=== PATIENT | male | born 1985 ===

== ENCOUNTER 2017-09-13 20:40 | Emergency (ER) | payer BC ==
[2017-09-13 20:54] VITALS: TEMP 97.5; O2SAT 100
[2017-09-13 21:44] LABS: BASO % 0.5 % (0.0-2.0); EOS # 0.2 K/uL (0.0-0.7); EOS % 2.7 % (0.0-4.0); HEMOGLOBIN 16.3 g/dL (12.0-18.0); LYMPH # 3.9 K/uL (1.0-4.3); LYMPH % 47.8 % (20.0-40.0); MEAN CELL VOLUME 82.4 fL (80.0-94.0); MEAN CORPUSCULAR HEMOGLOBIN 28.6 pg (27.0-31.0); MEAN CORPUSCULAR HGB CONC 34.7 g/dL (33.0-37.0); MEAN PLATELET VOLUME 8.5 fL (7.2-11.7); MONO # 0.7 K/uL (0.0-0.8); MONO % 8.2 % (0.0-10.0); NEUT # 3.3 K/uL (1.8-7.0); NEUT % 40.8 % (50.0-75.0); NRBC % 0.1 % (0.0-2.0); RBC 5.7 Mil/uL (4.40-5.90); RED CELL DISTRIBUTION WIDTH 14.1 % (11.5-14.5); WHITE BLOOD COUNT 8.2 K/uL (4.8-10.8)
--- NOTE | 2017-09-13 21:45 | C.PDOC ---
History Of Present Illness 32-year-old male, brought in by ambulance to the emergency department complaining of transient left chest discomfort, that resolved prior to evaluation. Patient took Motrin 400mg; he was evaluated for same complaint at [facility] two weeks ago, with normal labs, cardiac echo and questionable pericarditis. patient followed up with Dr Mcclelland, rat exterminator, told patient he does not have any signs or symptoms of this. Patient has been googling aggressively, which has him convinced that he has percarditis due to persisting symptoms. Pain is not positional, and does not change in severity by moving forward or back. Time Seen by Provider: 09/13/17 21:06 Chief Complaint (Nursing): Chest Pain History Per: Patient History/Exam Limitations: no limitations Onset/Duration Of Symptoms: Days Current Symptoms Are (Timing): Better Past Medical History Reviewed: Historical Data, Nursing Documentation, Vital Signs Vital Signs: Last Vital Signs Temp 97.5 F L 09/13/17 20:42 Pulse 59 L 09/13/17 22:32 Resp 18 09/13/17 22:32 BP 104/67 09/13/17 22:32 Pulse Ox 100 09/13/17 23:06 Family History: States: No Known Family Hx - Social History Hx Alcohol Use: No Hx Substance Use: No - Immunization History Hx Tetanus Toxoid Vaccination: No Hx Influenza Vaccination: No Hx Pneumococcal Vaccination: No Review Of Systems Constitutional: Negative for: Fever, Chills Cardiovascular: Positive for: Chest Pain (left). Negative for: Palpitations Respiratory: Negative for: Shortness of Breath, Pleuritic Pain Gastrointestinal: Negative for: Nausea, Vomiting Musculoskeletal: Negative for: Back Pain Skin: Negative for: Rash Neurological: Negative for: Weakness, Numbness, Headache, Dizziness Physical Exam - Physical Exam Appears: Other (Anxious) Skin: Warm, Dry, No Rash Head: Atraumatic, Normacephalic Eye(s): bilateral: Normal Inspection, PERRL Nose: Normal Oral Mucosa: Moist Neck: Normal ROM Cardiovascular: Rhythm Regular, No Edema, Murmur (mild, holosystolic in aortic focus. ), No JVD, Other (No rubs) Respiratory: Normal Breath Sounds, No Accessory Muscle Use Extremity: Normal ROM Neurological/Psych: Oriented x3, Normal Speech ED Course And Treatment - Laboratory Results Result Diagrams: 09/13/17 21:27 09/13/17 21:27 Lab Interpretation: Normal (d-dimer neg, trop neg, ESR 2) ECG: Interpreted By Me ECG Rhythm: Sinus Tachycardia ECG Interpretation: Abnormal Rate From EC O2 Sat by Pulse Oximetry: 100 (RA) Pulse Ox Interpretation: Normal - Radiology CXR: Interpreted by Me CXR Interpretation: Yes: No Acute Disease Progress Note: xanax 0.25 mg PO Reevaluation Time: 23:00 Reassessment Condition: Improved Medical Decision Making Medical Decision Making: pt with NO evidence, nor signs nor symtoms of pericarditis. normal labs, no rub, ESR neg, trop neg, d-dimer neg. More likely pt w h/o morbid obesity, h/o gastric sleeve w reflux dz on PPI now encouraged by 2 prior evals in past 2 weeks to take high dose NSAIDS around the clock for "presumed pericarditis" despite no supporting evidence, now worstening gastris/GERD. explained to STOP all NSAIDS and double PPI/Pepcid and liberal Maalox for symptoms. Disposition Doctor Will See Patient In The: Office Counseled Patient/Family Regarding: Studies Performed, Diagnosis - Disposition Referrals: Tushar Delacruz MD [Medical Doctor] - Disposition: HOME/ ROUTINE Disposition Time: 23:04 Condition: GOOD Additional Instructions: pt with NO evidence, nor signs nor symtoms of pericarditis. normal labs, no rub, ESR neg, trop neg, d-dimer neg. More likely pt w h/o morbid obesity, h/o gastric sleeve w reflux dz on PPI now encouraged by 2 prior evals in past 2 weeks to take high dose NSAIDS around the clock for "presumed pericarditis" despite no supporting evidence, now worstening gastris/GERD. STOP all NSAIDS Double PPI/Pepcid to 20 mg 9AM and 9PM [place] Maalox for symptoms- one tablespoon 4-5x/day for next 3 days, then as symptoms occur. Outpatient follow-up with PMD as needed. Instructions: Chest Pain (ED), Gastroesophageal Reflux Disease (ED) Forms: [employer] (Ghanaian) - Clinical Impression Clinical Impression: Chest discomfort - Scribe Statement The provider has reviewed the documentation as recorded by the Scribe (Marc Cochran) All medical record entries made by the Scribe were at my direction and personally dictated by me. I have reviewed the chart and agree that the record accurately reflects my personal performance of the history, physical exam, medical decision making, and the department course for this patient. I have also personally directed, reviewed, and agree with the discharge instructions and disposition.
[2017-09-13 21:46] LABS: ALB/GLOB RATIO 1.1 (1.0-2.1); ALBUMIN 4.9 g/dL (3.5-5.0); ALT/SGPT 45 U/L (21-72); AST/SGOT 27 U/L (17-59); BLOOD UREA NITROGEN 17 mg/dL (9-20); CALCIUM 9.7 mg/dl (8.6-10.4); GFR AFRICAN-AMERICAN > 60; GFR NON-AFRICAN AMERICAN > 60
[2017-09-13 21:54] LABS: INR 1.3; PARTIAL THROMBOPLASTIN TIME 33 SECONDS (21-34); PROTHROMBIN TIME 14.3 SECONDS (9.7-12.2)
[2017-09-13 21:56] LABS: D DIMER < 200.0 ng/mlDDU (0-243)
[2017-09-13 22:10] LABS: B-TYPE NATRIURETIC PEPTIDE 13.3 pg/mL (0-450)
[2017-09-13 22:38] VITALS: BP 104/67; PULSE 59; RESP 18
--- NOTE | 2017-09-14 09:09 | RAD ---
Chest x-ray single frontal view History: Shortness of no breath. Comparison: 09/13/2017 Findings: No focal infiltrate or effusion. Right hilar prominence. Heart size within normal limits. Degenerative changes in the spine. Impression: No focal infiltrate or effusion.
--- NOTE | 2017-09-14 12:14 | CARD ---
APPROVED REPORT EKG Measurement Heart [id number] <Conclusion> Sinus tachycardia Otherwise normal ECG
== END 2017-09-13 23:29 | disposition home or self-care (01) ==
LOC: C.ER 20:40 → MERGE 20:40 → C.ER 23:29
DX: R07.89 Other chest pain (principal)

== ENCOUNTER 2017-09-20 21:09 | Emergency (ER) | payer BC ==
--- NOTE | 2017-09-20 23:35 | C.PDOC ---
Chief Complaint (Nursing): Chest Pain Past Medical History Vital Signs: Last Vital Signs Temp 97.4 F L 09/20/17 22:50 Pulse 72 09/20/17 22:50 Resp 18 09/20/17 22:50 BP 124/88 09/20/17 22:50 Pulse Ox 99 09/20/17 22:50 - Social History Hx Alcohol Use: No Hx Substance Use: No - Immunization History Hx Tetanus Toxoid Vaccination: No Hx Influenza Vaccination: No Hx Pneumococcal Vaccination: No ED Course And Treatment ECG: Interpreted By Me, Viewed By Me ECG Rhythm: Sinus Rhythm ECG Interpretation: Normal, No Acute Changes Interpretation Of ECG: NSR, J - pt. elevation-early repolarization, borderline tracings Rate From EC O2 Sat by Pulse Oximetry: 99 Pulse Ox Interpretation: Normal Disposition - Disposition Referrals: Tushar Delacruz MD [Primary Care Provider] -
--- NOTE | 2017-09-20 23:38 | C.PDOC ---
History Of Present Illness 32yo male, presents to ED for evaluation of an episode of chest pain earlier today, lasting for 20 minutes. Patient currently pain free and denies any chest pain, shortness of breath. Of note, patient was seen in this facility 1 week ago for similar symptoms and had a well exam. Chief Complaint (Nursing): Chest Pain History Per: Patient History/Exam Limitations: no limitations Onset/Duration Of Symptoms: Other (1 episode earlier today) Current Symptoms Are (Timing): Gone Quality: "Pain" Additional History Per: Patient Past Medical History Reviewed: Historical Data, Nursing Documentation, Vital Signs Vital Signs: Last Vital Signs Temp 97.4 F L 09/20/17 22:50 Pulse 72 09/20/17 22:50 Resp 18 09/20/17 22:50 BP 124/88 09/20/17 22:50 Pulse Ox 99 09/21/17 01:44 - Medical History PMH: No Chronic Diseases Surgical History: No Surg Hx Family History: States: No Known Family Hx - Social History Hx Alcohol Use: No Hx Substance Use: No - Immunization History Hx Tetanus Toxoid Vaccination: No Hx Influenza Vaccination: No Hx Pneumococcal Vaccination: No Review Of Systems Except As Marked, All Systems Reviewed And Found Negative. Constitutional: Negative for: Fever, Chills Cardiovascular: Positive for: Chest Pain (1 episode earlier today) Respiratory: Negative for: Shortness of Breath Gastrointestinal: Negative for: Nausea, Vomiting, Abdominal Pain Physical Exam - Physical Exam Appears: Non-toxic, No Acute Distress Skin: Normal Color, Warm, Dry Head: Atraumatic, Normacephalic Eye(s): bilateral: Normal Inspection Neck: Normal ROM, Supple Chest: Symmetrical Cardiovascular: Rhythm Regular, No Murmur Respiratory: Normal Breath Sounds, No Wheezing Gastrointestinal/Abdominal: Normal Exam, Bowel Sounds, Soft, No Tenderness Back: Normal Inspection Extremity: Normal ROM Neurological/Psych: Oriented x3, Normal Speech, Normal Cognition ED Course And Treatment - Laboratory Results Result Diagrams: 09/21/17 00:10 09/21/17 00:10 ECG: Interpreted By Me, Viewed By Me ECG Rhythm: Sinus Rhythm ECG Interpretation: Normal, No Acute Changes Interpretation Of ECG: NSR, J- pt. elevation-early repolarization, borderline tracings Rate From EC O2 Sat by Pulse Oximetry: 99 (RA) Pulse Ox Interpretation: Normal - Radiology CXR: Interpreted by Me, Viewed By Me CXR Interpretation: Yes: No Acute Disease (normal chest film) Medical Decision Making Medical Decision Making: Impression: Chest pain Plan: -- CXR -- EKG -- Labs Time: 0142 Labs reviewed and cardiac enzymes within normal limits. Patient is pain free. Stable for discharge home. Disposition - Disposition Referrals: Tushar Delacruz MD [Primary Care Provider] - Disposition: HOME/ ROUTINE Disposition Time: 01:42 Condition: STABLE Instructions: Noncardiac Chest Pain (ED) Forms: [employer] (Andorran) - POA Present On Arrival: None - Clinical Impression Clinical Impression: Chest pain, non-cardiac - Scribe Statement The provider has reviewed the documentation as recorded by the Scribe (Tran Leary) Provider Attestation: All medical record entries made by the Scribe were at my direction and personally dictated by me. I have reviewed the chart and agree that the record accurately reflects my personal performance of the history, physical exam, medical decision making, and the department course for this patient. I have also personally directed, reviewed, and agree with the discharge instructions and disposition.
[2017-09-21 00:21] LABS: BASO # 0.1 K/uL (0.0-0.2); BASO % 0.9 % (0.0-2.0); EOS # 0.2 K/uL (0.0-0.7); HEMOGLOBIN 15.6 g/dL (12.0-18.0); LYMPH % 43.1 % (20.0-40.0); MEAN CELL VOLUME 82.4 fL (80.0-94.0); MEAN CORPUSCULAR HEMOGLOBIN 28.3 pg (27.0-31.0); MEAN CORPUSCULAR HGB CONC 34.4 g/dL (33.0-37.0); MEAN PLATELET VOLUME 8.5 fL (7.2-11.7); MONO # 0.6 K/uL (0.0-0.8); MONO % 8.2 % (0.0-10.0); NEUT # 3.1 K/uL (1.8-7.0); NEUT % 44.8 % (50.0-75.0); NRBC % 0.1 % (0.0-2.0); RBC 5.51 Mil/uL (4.40-5.90); RED CELL DISTRIBUTION WIDTH 13.8 % (11.5-14.5)
[2017-09-21 00:51] LABS: ALB/GLOB RATIO 1.1 (1.0-2.1); ALBUMIN 4.5 g/dL (3.5-5.0); ALT/SGPT 47 U/L (21-72); AST/SGOT 32 U/L (17-59); BLOOD UREA NITROGEN 14 mg/dL (9-20); CALCIUM 9.5 mg/dl (8.6-10.4); GFR AFRICAN-AMERICAN > 60; GFR NON-AFRICAN AMERICAN > 60
[2017-09-21 01:55] VITALS: BP 124/86; PULSE 73; RESP 22; TEMP 97.6; O2SAT 100
--- NOTE | 2017-09-21 09:05 | RAD ---
HISTORY: chest pain COMPARISON: 09/13/2017 TECHNIQUE: Chest PA and lateral FINDINGS: LUNGS: No active pulmonary disease. PLEURA: No significant pleural effusion identified. No pneumothorax apparent. CARDIOVASCULAR: Normal. OSSEOUS STRUCTURES: No significant abnormalities. VISUALIZED UPPER ABDOMEN: Normal. OTHER FINDINGS: None. IMPRESSION: No active disease.
--- NOTE | 2017-09-21 21:02 | CARD ---
APPROVED REPORT EKG Measurement Heart [id number] <Conclusion> Normal sinus rhythm ST elevation, probably due to early repolarization Borderline ECG
== END 2017-09-21 01:59 | disposition home or self-care (01) ==
LOC: SUPCPDRO 21:09 → C.ER 21:09
DX: R07.89 Other chest pain (principal)

== ENCOUNTER 2017-10-17 16:47 | Emergency (ER) | payer BC ==
[2017-10-17 16:52] VITALS: BMI 31.5
[2017-10-17 17:06] VITALS: O2SAT 98
[2017-10-17] MEDS ORDERED: Sodium Chloride 0.9% 1,000 ML IV ONE (17:17)
--- NOTE | 2017-10-17 17:31 | C.PDOC ---
History Of Present Illness Floridalma Delacruz is a 32 year old male, with a past medical history of gastric sleeve , who presents to the emergency department complaining of fever, body aches, headache onset for x1 day. Patient was seen at urgent care today and was prescribed Tamiflu. Patient states he went home and began having mid chest pain that worsens with deep inspiration. He is on day 5 of Augmentin for an inflamed lymph node, but no history of DVT/PE. No recent travel or surgery, no known hypercoagulable state. He denies any shortness of breath or other medical complaints. PMD: None provided. HPI: Influenza Time Seen by Provider: 10/17/17 16:57 Chief Complaint: Cough, Cold, Congestion Chief Complaint (Provider): Mid chest pain and Flu sx History Per: Patient Exam Limitations: no limitations Have you had recent travel within the past 21 days to any of the following countries: [place], [place], [place] or [place]?: No Onset/Duration Of Symptoms: Days (x1) Symptoms include: fever, headache, bodyaches, chest pain (mid). denies: difficulty breathing Past Medical History Reviewed: Historical Data, Nursing Documentation, Vital Signs Vital Signs: Last Vital Signs Temp 101.1 F H 10/17/17 17:06 Pulse 121 H 10/17/17 17:06 Resp 18 10/17/17 17:06 BP 121/87 10/17/17 17:06 Pulse Ox 98 10/17/17 17:06 - Medical History PMH: No Chronic Diseases Other Surgeries: gastric sleeve Family History: States: Unknown Family Hx - Social History Hx Alcohol Use: No Hx Substance Use: No - Immunization History Hx Tetanus Toxoid Vaccination: No Hx Influenza Vaccination: No Hx Pneumococcal Vaccination: No Review Of Systems Except As Marked, All Systems Reviewed And Found Negative. Constitutional: Positive for: Fever, Other (body aches) Cardiovascular: Positive for: Chest Pain (mid) Respiratory: Negative for: Shortness of Breath Neurological: Positive for: Headache Physical Exam - Physical Exam Appears: No Acute Distress Skin: Normal Color, Warm, Dry Head: Atraumatic, Normacephalic Eye(s): bilateral: Normal Inspection, PERRL, EOMI Ear(s): Bilateral: Normal Nose: Normal Oral Mucosa: Moist Throat: Normal Neck: Normal ROM, Supple Cardiovascular: Rhythm Regular, No Murmur Respiratory: Normal Breath Sounds (clear auscultation), No Wheezing Gastrointestinal/Abdominal: Normal Exam, Soft, No Tenderness, No Guarding, No Rebound Back: Normal Inspection, No CVA Tenderness Extremity: Normal ROM, No Tenderness, No Deformity, No Swelling Neurological/Psych: Oriented x3, Other (Negative brudzinski's and Kernig's sign. ) Gait: Steady Medical Decision Making Medical Decision Making: Initial Impression: Flu-like symptoms Initial Plan: --EKG --CMP --Troponin I --CBC w/ differential --D Dimer --Chest two views (PA/LAT) [RAD] --Influenza type A Antigen --Sodium Chloride 1,000 ml IV 1,000 mls/hr --Toradol 30 mg IVP --Tylenol 325mg tab 975 mg PO --Influenza A B --Reevaluation 17:29 CXR FINDINGS: Examination limited by habitus. LUNGS: No focal consolidation. Please note that chest x-ray has limited sensitivity for the detection of pulmonary masses. PLEURA: No significant pleural effusion identified. No definite pneumothorax . CARDIOVASCULAR: The cardiomediastinal silhouette appears within normal limits of size. OSSEOUS STRUCTURES: No acute osseous abnormality identified. VISUALIZED UPPER ABDOMEN: Unremarkable. OTHER FINDINGS: None. IMPRESSION: No focal consolidation, significant pleural effusion, or definite pneumothorax identified. - Laboratory Results Result Diagrams: 10/17/17 17:32 10/17/17 17:32 - ECG ECG Rhythm: Positive for: Sinus Tachycardia Interpretation Of ECG: Normal intervals, normal axis, no ST/T wave abnormalities. Rate: 109 O2 Sat by Pulse Oximetry: 98 (RA) Pulse Ox Interpretation: Normal Disposition - Disposition Disposition Time: 19:00 Condition: STABLE Forms: [facility] (Portuguese) - Clinical Impression Clinical Impression: Influenza-like illness - Scribe Statement The provider has reviewed the documentation as recorded by the Victoria Monahan Provider Attestation: All medical record entries made by the Alexanderibaníbal were at my direction and personally dictated by me. I have reviewed the chart and agree that the record accurately reflects my personal performance of the history, physical exam, medical decision making, and the department course for this patient. I have also personally directed, reviewed, and agree with the discharge instructions and disposition. Physician Patient Turnover Patient Signed Over To: Son Gary Handoff Comments: pending repeat troponin, reevaluation and disposition.
[2017-10-17 17:34] LABS: BASO % 0.6 % (0.0-2.0); EOS % 0.2 % (0.0-4.0); HEMOGLOBIN 16.3 g/dL (12.0-18.0); LYMPH % 19.1 % (20.0-40.0); MEAN CELL VOLUME 82.4 fL (80.0-94.0); MEAN CORPUSCULAR HEMOGLOBIN 28.9 pg (27.0-31.0); MEAN CORPUSCULAR HGB CONC 35.1 g/dL (33.0-37.0); MEAN PLATELET VOLUME 7.9 fL (7.2-11.7); MONO # 0.6 K/uL (0.0-0.8); MONO % 11.6 % (0.0-10.0); NEUT # 3.6 K/uL (1.8-7.0); NEUT % 68.5 % (50.0-75.0); NRBC % 0.1 % (0.0-2.0); RBC 5.63 Mil/uL (4.40-5.90); RED CELL DISTRIBUTION WIDTH 14.2 % (11.5-14.5); WHITE BLOOD COUNT 5.3 K/uL (4.8-10.8)
[2017-10-17 17:57] LABS: ALB/GLOB RATIO 1.2 (1.0-2.1); ALBUMIN 4.4 g/dL (3.5-5.0); ALT/SGPT 53 U/L (21-72); AST/SGOT 39 U/L (17-59); BLOOD UREA NITROGEN 11 mg/dL (9-20); CALCIUM 9.4 mg/dl (8.6-10.4); GFR AFRICAN-AMERICAN > 60; GFR NON-AFRICAN AMERICAN > 60
[2017-10-17 18:09] VITALS: BP 118/69; RESP 16; TEMP 99.6
[2017-10-17 18:32] VITALS: PULSE 109
--- NOTE | 2017-10-19 20:23 | CARD ---
APPROVED REPORT EKG Measurement Heart [id number] NC [id number] [id number] <Conclusion> Sinus tachycardia Otherwise normal ECG
== END 2017-10-17 19:50 | disposition home or self-care (01) ==
LOC: C.ER 16:47
DX: J11.1 Influenza due to unidentified influenza virus with other respiratory manifestations (principal); Z98.84 Bariatric surgery status
CPT/HCPCS: 71046; 80053; 83690; 84484; 85025; 85378; 87804; 93005; 96361; 96374; 99283; J1885; J7040